=== PATIENT | male | born 1960 | race Caucasian/White ===

== ENCOUNTER 2020-06-09 00:43 | Emergency (ER) | payer BC, OTHER, SELFPAY ==
--- NOTE | 2020-06-09 00:45 | ECG_ITS ---
Measurements Intervals [place] Rate: 67 P: 36 KS: 186 QRS: -4 QRSD: 102 T: 28 QT: 371 QTc: 393 Interpretive Statements SINUS RHYTHM BORDERLINE ST-T WAVE ABNORMALITY- HIGH LATERAL LEADS BASELINE ARTIFACT- I, II, III, AVR, AVL, AVF, V1, V6 BORDERLINE ECG Electronically Signed On 06-09-2020 7:04:56 CDT by He Jasso D.O.
[2020-06-09 00:52] VITALS: BP 152/108; PULSE 71; RESP 16; TEMP 36.7; O2SAT 100
[2020-06-09] MEDS: ASPIRIN 81 MG CHEWABLE TABLET 324 MG PO (01:05)
[2020-06-09 01:06] LABS: Basophils Absolute Auto 0.1 K/mm3 (0.0-0.1); Basophils Percent Auto 0.8 % (0.2-1.2); Eosinophils Absolute Auto 0.3 K/mm3 (0-0.3); Eosinophils Percent Auto 3.2 % (0-4.4); Hematocrit 52.8 % (42.0-52.0); Hemoglobin 17.7 g/dL (14.0-18.0); Immature Granulocyte Absolute 0.04 K/mm3 (0.00-0.031); Immature Granulocyte Percent A 0.5 % (0-0.5); Lymphocytes Absolute Auto 2.18 K/mm3 (0.9-3.2); Mean Corpuscular HGB Conc 33.5 g/dl (32-36); Mean Corpuscular Hemoglobin 31.1 pg (26-34); Mean Corpuscular Volume 92.6 fl (80-100); Mean Platelet Volume 10.8 fl (7.4-10.4); Neutrophils Absolute Auto 4.3 K/mm3 (1.3-6.7); Neutrophils Percent Auto 54.5 % (45.5-73.1); Platelet Count Result 204 k/mm3 (150-375); Red Cell Distribution Width 12.7 % (11.5-14.5); White Blood Count 7.8 K/mm3 (4.5-10.0)
[2020-06-09] MEDS: NITROGLYCERIN SL 0.4 MG TABLET SUBLINGUAL (01:06)
[2020-06-09 01:15] LABS: INR 1.1; Prothrombin Time 14.5 Seconds (11.1-14.7)
[2020-06-09 01:15] LABS: Alanine Aminotransferase 27 U/L (4-50); Albumin Level 4.7 g/dL (3.5-5.1); Alkaline Phosphatase 57 U/L (38-126); Anion Gap 7 mmol/L (8-16); Aspartate Amino Transferase 27 U/L (17-59); Bilirubin,Total 0.4 mg/dL (0.2-1.3); Blood Urea Nitrogen 20 mg/dL (9-20); Calcium 9.5 mg/dL (8.4-10.2); Carbon Dioxide 30 mmol/L (22-30); Chloride 103 mmol/L (98-107); Estimated CRCL calculation 76 ml/min; Estimated Glomerular Filt Rate > 60; Glucose 149 mg/dL (75-110); Lipase 208 U/L (23-300); Potassium 3.9 mmol/L (3.4-5.0); Sodium 140 mmol/L (137-145)
[2020-06-09 01:16] LABS: Partial Thromboplastin Time 29.4 SECONDS (22.3-36.8)
[2020-06-09 01:26] LABS: Troponin I < 0.012 ng/mL (0.000-0.034)
[2020-06-09 01:34] VITALS: BP 133/84; PULSE 68; RESP 16; O2SAT 96
--- NOTE | 2020-06-09 02:01 | ED.GENADULT ---
HPI - General Adult General Chief complaint: Chest Pain Stated complaint: chest pain Time Seen by Provider: 06/09/20 00:52 History of Present Illness HPI narrative: Patient 59-year-old gentleman who presents to emergency department with chief complaint of chest discomfort. The patient states tonight he was relaxing and noticed he was slight tightness over the left side of his chest. Patient denies shortness of breath denies diaphoresis reports it was not worsened or improved by anything. Patient reports he has prior history of atrial fib in the past and also has had a valve replacement. The patient reports he is on an anticoagulant the patient reports that pain is not worsened by anything nor is it improved by anything reports it is very mild in nature. Related Data Home Medications Medication Instructions Recorded Confirmed carvedilol 25 mg tablet 25 mg PO Q12H 12/23/18 02/12/19 digoxin 250 mcg (0.25 mg) tablet 250 mcg PO DAILY 12/23/18 02/12/19 rivaroxaban 20 mg tablet 20 mg PO DAILY 12/23/18 02/12/19 rosuvastatin 20 mg tablet 20 mg PO DAILY 12/23/18 02/12/19 docvuovn-hrq-wemvw acid 300 1 tablet PO DAILY 12/24/18 02/12/19 mcg-lycopene 600 mcg-lutein 300 mcg tablet blood sugar diagnostic #10 each 02/12/19 02/12/19 Allergies Allergy/AdvReac Type Severity Reaction Status Date / Time No Known Allergies Allergy Verified 06/09/20 00:44 Review of Systems Review of Systems: Narrative: A 10 system review of systems was completed on the patient and is negative except for what is stated in the HPI. Nursing and ancillary documentation was reviewed. [facility] Past Medical History Medical History Essential (primary) hypertension H/O mitral valve prolapse History of chronic atrial fibrillation History of sleep apnea Insomnia Type 2 diabetes mellitus without complication, without long-term current use of insulin Surgical History Surgical History Hx of mitral valve repair 09/14/2016 Family History Family History Father Family history of cardiovascular disease, Onset Age: 60 Other Diabetes mellitus Family history of alcoholism Family history of chronic obstructive pulmonary disease Family history of lung cancer Family history of obesity Hypertension Social History Social History Smoking status: Never smoker Second hand tobacco smoke exposure: No Alcohol intake: current Substance use: never Substance use type: does not use Additional living arrangements comments: Gender identity (if verbalized by the patient): Male Exam Narrative: Exam Narrative: GENERAL: Well-appearing, well-nourished, and in no acute distress. HEAD: Normocephalic, atraumatic. EYES: PERRLA and EOMI. ENT: Nares clear, no rhinorrhea or epistaxis. Mucous membranes moist. NECK: Supple. CHEST: Clear to auscultation. No respiratory distress. HEART: Regular rate and rhythm. No murmur heard. Normal peripheral pulses. ABDOMEN: Soft, nontender, nondistended, normal active bowel sounds. EXTREMITIES: Normal range of motion. No edema. SKIN: Warm, dry, no rash. NEURO: No focal deficits. Alert and oriented x3. PSYCH: Normal mood and affect. Course Vital Signs Vital signs: Vital Signs Temperature 36.7 C 06/09/20 00:52 Pulse Rate 71 06/09/20 00:52 Respiratory Rate 16 06/09/20 00:52 Blood Pressure 152/108 H 06/09/20 00:52 Pulse Oximetry 100 06/09/20 00:52 Temperature 36.7 C 06/09/20 00:52 Pulse Rate 70 06/09/20 03:39 Respiratory Rate 16 06/09/20 03:39 Blood Pressure 135/79 06/09/20 03:39 Pulse Oximetry 96 06/09/20 03:39 Medical Decision Making Vital Signs Vital Signs: Vital Signs Temperature 36.7 C 06/09/20 00:52 Pulse Rate
[2020-06-09 03:39] VITALS: BP 135/79; PULSE 70; RESP 16; O2SAT 96
[2020-06-09 04:37] LABS: Troponin I < 0.012 ng/mL (0.000-0.034)
[2020-06-09 04:50] VITALS: BP 133/79; PULSE 78; RESP 16; TEMP 36.7; O2SAT 100
== END 2020-06-09 04:51 | disposition home or self-care (01) ==
PROVIDERS: Emergency Provider Emergency Medicine; PCP Family Medicine
DX: R07.89 Other chest pain (principal); I10 Essential (primary) hypertension; I34.1 Nonrheumatic mitral (valve) prolapse; I48.20 Chronic atrial fibrillation, unspecified; Z79.01 Long term (current) use of anticoagulants; G47.30 Sleep apnea, unspecified
CPT/HCPCS: 36415; 80048; 80076; 83690; 84484; 85025; 85610; 85730; 93005; 99284; A9270

== ENCOUNTER 2022-05-10 08:54 | Outpatient (CLI) | payer BC, OTHER, SELFPAY ==
[2022-05-10 16:49] LABS: Basophils Absolute Auto 0.1 K/mm3 (0.0-0.1); Basophils Percent Auto 0.9 % (0.2-1.2); Eosinophils Absolute Auto 0.2 K/mm3 (0-0.3); Hematocrit 51.8 % (42.0-52.0); Hemoglobin 16.9 g/dL (14.0-18.0); Immature Granulocyte Absolute 0.05 K/mm3 (0.00-0.031); Immature Granulocyte Percent A 0.6 % (0-0.5); Lymphocytes Absolute Auto 1.46 K/mm3 (0.9-3.2); Lymphocytes Percent Auto 18.7 % (18.3-44.2); Mean Corpuscular HGB Conc 32.6 g/dl (32-36); Mean Corpuscular Hemoglobin 31.6 pg (26-34); Mean Corpuscular Volume 96.8 fl (80-100); Mean Platelet Volume 11.1 fl (7.4-10.4); Monocytes Absolute Auto 0.8 K/mm3 (0.1-0.6); Monocytes Percent Auto 9.7 % (2.6-8.5); Neutrophils Absolute Auto 5.3 K/mm3 (1.3-6.7); Neutrophils Percent Auto 68.1 % (45.5-73.1); Platelet Count Result 221 k/mm3 (150-375); Red Blood Count 5.35 M/mm3 (4.6-6.20); Red Cell Distribution Width 13.2 % (11.5-14.5); White Blood Count 7.8 K/mm3 (4.5-10.0)
[2022-05-10 17:05] LABS: Alanine Aminotransferase 19 U/L (6-50); Albumin Level 4.7 g/dL (3.5-5.1); Alkaline Phosphatase 58 U/L (38-126); Anion Gap 15 mmol/L (8-16); Aspartate Amino Transferase 58 U/L (17-59); Bilirubin,Total 0.8 mg/dL (0.2-1.3); Blood Urea Nitrogen 20 mg/dL (9-20); Calcium 9.1 mg/dL (8.4-10.2); Carbon Dioxide 20 mmol/L (22-30); Chloride 106 mmol/L (98-107); Estimated Glomerular Filt Rate > 60; Glucose 153 mg/dL (65-110); Potassium 4.5 mmol/L (3.4-5.0); Sodium 141 mmol/L (137-145)
[2022-05-10 17:33] LABS: Prostate Specific Antigen 1.5 ng/mL (< OR = 4.0)
[2022-05-10 17:53] LABS: Vitamin D 25 Hydroxy 44.4 ng/mL
[2022-05-10 17:58] LABS: Creatinine Urine 75.6 mg/dL
[2022-05-10 19:21] LABS: MALB Creatinine Ratio < 7.9 mg/g (0-30); Microalbumin Urine Random < 6.0 mg/L (0-16.7)
== END 2022-05-10 08:55 | disposition home or self-care (01) ==
LOC: ANHWCLAB 08:57
PROVIDERS: PCP Family Medicine; Visit Provider Family Medicine
DX: Z00.00 Encounter for general adult medical examination without abnormal findings (principal); Z12.5 Encounter for screening for malignant neoplasm of prostate; I11.0 Hypertensive heart disease with heart failure; I50.9 Heart failure, unspecified; I48.20 Chronic atrial fibrillation, unspecified; E11.9 Type 2 diabetes mellitus without complications; E55.9 Vitamin D deficiency, unspecified
CPT/HCPCS: 36415; 80053; 82043; 82306; 84153; 84443; 85025; G0103

== ENCOUNTER 2024-07-30 07:59 | Outpatient (CLI) | payer OTHER, SELFPAY ==
[2024-08-19 10:07] VITALS: BMI 26.8
--- NOTE | 2024-08-19 10:07 | WPDHOMESLEEP ---
Sleep Study - Home Unattended Date of Study: 07/30/24 Ordering Provider: Pritesh Trinh APRN Interpreting Provider: Noni Lieberman DO Home Sleep Study Type: Watch PAT Height: 1.82 m Weight: 88.451 kg Body Mass Index: 26.8 Neck Circumference (inches): 16 [place]: 0 Reason for Sleep Study Previously diagnosed VERN but no longer on CPAP. Evaluation for VERN based on abnormal blood test. Sleep History The patient is a 63-year-old male who had a sleep study ordered by the pulmonary group for the evaluation of sleep apnea. He denies snoring loudly. He denies interruptions in breathing while asleep. He denies choking or gasping at night. He denies having trouble breathing on his back. He denies morning headaches. He denies having a dry or sore mouth/throat in the morning. He denies nocturnal heartburn. He denies nocturia. He denies having difficulty falling or staying asleep. He does have difficulty returning to sleep if he wakes up throughout the night. He denies any hypnotic or sedative use. He denies feeling anxious about sleep. He denies feeling tired or sleepy during the day. He denies feeling tired in the morning. He denies having the urge to fall asleep during the day. He denies feeling drowsy while driving. He denies sleep paralysis, cataplexy, and hypnagogic/hypnopompic hallucinations. He denies clenching or grinding his teeth. He denies kicking or jerking his legs excessively. He denies having a restless feeling in his legs. He goes to bed at 11 p.m. every night. It takes him 15 minutes to fall asleep. He gets 7 hours of sleep every night. His sleep is a little more restorative on days off. He denies taking any planned naps. He denies dream enactment behavior. He denies sleepwalking. He consumes 1 to 2 cups of a caffeinated beverage per day. He consumes 1 alcoholic beverage 1 to 2 nights per week. He denies tobacco use. He exercises 3 to 4 nights per week. COUNT INCLUDES THE [facility] Past Medical History Medical History Anxiety (~2022) VERN (obstructive sleep apnea) H/O mitral valve prolapse Chronic atrial fibrillation Hyperlipidemia with target LDL less than 70 History of chronic atrial fibrillation Type 2 diabetes mellitus without complication, without long-term current use of insulin Essential (primary) hypertension Insomnia Chronic congestive heart failure 06/19/17 Surgical History Surgical History H/O mitral valve repair (~03/2007) Family History Family History Father Family history of cardiovascular disease, Onset Age: 60 Other Diabetes mellitus Family history of alcoholism Family history of chronic obstructive pulmonary disease Family history of lung cancer Family history of obesity Hypertension Social History Social History Smoking status: Never smoker Second hand tobacco smoke exposure: No Alcohol intake: current Alcohol use details: drinks a couple beers or a couple glasses of wine on Saturdays Substance use: never Substance use type: does not use Lack of Transportation: No Lack of Food: Never True Current Housing: I Have Housing Concerned About Future Housing: No Difficulty Paying Gas/Electric Bills: No Difficulty Paying for Meds: No Currently Unemployed: No Education: Master's Degree or Higher Difficulty w/ Childcare or Family Care: No Living arrangements: with family Additional living arrangements comments: Occupation/Education: occupation Gender identity (if verbalized by the patient): Male Sexual Orientation (if Verbalized by the Patient): Straight or Heterosexual Spiritual care concerns: No Medications Home Medications ?Medication ?Instructions ?Recorded ?Confirmed ?Type digoxin 250 mcg (0.25 mg) tablet 250 mcg PO DAILY 12/23/18 05/05/24 History rivaroxaban 20 mg tablet (Xarelto) 20 mg PO DAILY 12/23/18 05/05/24 History kchngees-sx-lvvga 300 mcg-K 60 1 tablet PO DAILY 12/24/18 05/05/24 History mcg-lycop 600 mcg-lutein 300 mcg tablet (Centrum Silver Men) blood sugar diagnostic #10 ea 02/12/19 05/05/24 History carvedilol 25 mg tablet 25 mg PO Q12H #180 tabs 02/20/23 05/05/24 Rx fenofibrate 160 mg tablet 160 mg PO DAILY #90 tabs 11/20/23 05/05/24 Rx icosapent ethyl 1 gram capsule 2 g (2 x 1 gram) PO BID #360 caps 11/20/23 05/05/24 Rx semaglutide 2 mg/dose (8 mg/3 mL) 2 mg (0.75 mL) subcut WEEKLY #9 mL 03/27/24 05/05/24 Rx subcutaneous pen injector blood-glucose sensor (FreeStyle #6 ea 04/25/24 05/05/24 Rx Judit 3 Sensor device) empagliflozin 25 mg tablet 25 mg PO QAM #90 tabs 05/05/24 05/05/24 Rx (Jardiance) insulin glargine 100 unit/mL (3 24 unit (0.24 mL) subcut DAILY 3 05/05/24 05/05/24 Rx mL) subcutaneous pen (Lantus months #24 mL Solostar U-100 Insulin) losartan 25 mg tablet 25 mg PO DAILY #90 tabs 05/05/24 05/05/24 Rx rosuvastatin 20 mg tablet 20 mg PO QHS #90 tabs 05/05/24 05/05/24 Rx metformin 1,000 mg tablet 1,000 mg PO BID 90 days #180 tabs 07/09/24 Rx pen needle, diabetic 32 gauge x #100 ea 08/05/24 Rx Sleep Procedure The sleep study was completed using [employer] a technically adequate device with seven channels: peripheral arterial tone, actigraphy, body position, snore, respiratory movement, pulse oximetry, sleep staging, and heart rate. Prior to using the device, the patient received verbal and written instructions for its application and was provided with the help desk phone number for additional telephonic instruction with 24-hour availability of qualified personnel to answer questions. The study was scored using CMS guidelines. Sleep Architecture The total recording time is 6 hrs, 12 min. The total sleep time is 5 hrs, 5 min. Sleep latency is 5 minutes. REM latency is 147 minutes. The patient had 8 episodes of waking. Sleep architecture shows 5.7% deep sleep, 77.1% light sleep, and (as % Total Sleep Time) showed NREM (Light 77.1%; Deep 5.7%), and a 17.2% stage REM. The patient spent 1.0% of total sleep time in the supine position. Sleep efficiency was 81.99. Respiratory Analysis The overall AHI (pAHI 4%:) is 4.5. The overall AHI (pAHI 3%:) is 11.9. The central AHI is 0.0. The AHI was 7.5 in NREM and 32.0 in REM sleep. The AHI was N/A in Supine and 12.0 in Non-supine sleep. Percent of Solomon Flood respirations is 0.0. Oximetry Data The oxygen desaturation index (KALI 4%:) is 3.9. The mean saturation is 92%, and the lowest saturation is 86%. Time spent with saturation < 88% is 0.8 minutes. Snoring Profile Snoring average intensity is 40 dB. The patient snored above 45 decibels for 2.5 minutes, 0.8% of sleep time. Cardiac Profile The average pulse rate is 65 beats per minutes. The lowest pulse rate is 45 bpm. The highest pulse rate reported is 102 bpm. Atrial fibrillation was not detected. Premature beats occur 5.5 per minute. Assessment and Plan Assessment and Plan (1) Sleep disturbances: Code(s): G47.9 - Sleep disorder, unspecified Status: Acute Assessment and Plan: Per AASM guidelines (pAHI 3%), the patient had an overall AHI of 11.9 with desaturation down to 86%. This is consistent with mild sleep apnea. Due to the patient's diabetes, he qualifies for treatment. I recommend that the patient be prescribed Resmed AirSense 11 AutoPAP 5-15 cm H2O, CPAP mask/filters/tubing and heated humidity. A mandibular advancement device is also an acceptable treatment option. This should be used with all episodes of sleep.? Compliance should be reviewed within 31-90 days of starting therapy for usage greater than 4 hours per night greater than 70% of the nights. The patient should be asked about symptoms such as?excessive daytime sleepiness, quality of sleep, decreased nocturia, increased?mental functioning such as memory, mood, and concentration. Per CMS guidelines (pAHI 4%), The patient had an overall AHI of 4.5 with desaturation down to 86%. This is not consistent with sleep disordered breathing. If the patient's insurance only recognizes CMS guidelines, he does not qualify for treatment. I would recommend a split study due to the patient's AHI being borderline. Data The data obtained during this sleep study is adequate for interpretation. Certification This sleep study has been reviewed by a board certified sleep medicine physician.
== END 2024-07-31 11:31 | disposition home or self-care (01) ==
LOC: ANHCSM 07:59
PROVIDERS: PCP Family Medicine; Visit Provider Nurse Practitioner Family
DX: G47.9 Sleep disorder, unspecified (principal); Z86.69 Personal history of other diseases of the nervous system and sense organs
CPT/HCPCS: 95800

== ENCOUNTER 2024-08-26 09:33 | Outpatient (CLI) | payer OTHER, SELFPAY ==
--- OUTSIDE RECORDS SUMMARY | 2024-08-26 09:37 | XMS_ITS | Continuity of Care Document ---
Author Name [facility] Organization [facility] Care Team Providers Care Roll Up Helper Name Role Phone [facility] Unavailable Unavailable Medications Combined list of outpatient medications from Department of Defense and Veterans Affairs facilities.Medications provided include 1) outpatient medications from the last 15 months, and 2) patient-reported medications. Medication Details Route Status Patient Instructions Prescription Expires Prescription Number Last Dispense Date Ordering Provider Order Date Order Qty Source BD Aminata 2nd Gen pen needle 32g 4mm [100EA] See Instruct ions, # 100 EA, 1 total refill(s ), Hard Stop Ordered 08/27/2024 4 2023 100.0 Ambulat ory Pharmac y carvedilol (U/D) 25 MG ORAL TAB May cause drowsine ss.Be careful if taking OTCs.Malachi e with food/mil k.Take or use exactly as directed . 06/11/2024 [id number] 4 2023 180 [facility] [place] [place] carvedilol 25 mg tablet 25 mg, Oral, BID, # 180 EA, 2 total refill(s ), Hard Stop Oral (given by mouth) Complet ed 05/29/2023 4 2023 180.0 Ambulat ory Pharmac y carvedilol 25 mg tablet = 1 tab(s), Oral, BID, # 180 EA, 3 total refill(s ), Soft Stop Oral (given by mouth) Ordered 5 2024 180.0 Ambulat ory Pharmac y carvedilol 25 mg tablet 25 mg, Oral, BID, # 180 EA, 3 total refill(s ), Hard Stop Oral (given by mouth) Complet ed 06/11/2024 5 2024 180.0 Ambulat ory Pharmac y dapaglifloz in 10 mg tablet 10 mg, Oral, Daily, # 90 EA, 3 total refill(s ), Hard Stop, JOLIE Oral (given by mouth) Discont inued 05/29/2024 4 2024 90.0 Ambulat ory Pharmac y digoxin (U/D) 250 MCG ORAL TAB Take or use exactly as directed . 06/11/2024 [id number] 4 2023 90 [facility] [place] [place] digoxin 250 mcg (0.25 mg) tablet 250 mcg, Oral, Daily, # 90 EA, 2 total refill(s ), Hard Stop Oral (given by mouth) Complet ed 05/29/2023 4 2023 90.0 Ambulat ory Pharmac y digoxin 250 mcg (0.25 mg) tablet = 1 tab(s), Oral, Daily, # 90 EA, 3 total refill(s ), Soft Stop Oral (given by mouth) Ordered 5 2024 90.0 Ambulat ory Pharmac y digoxin 250 mcg (0.25 mg) tablet 250 mcg, Oral, Daily, # 90 EA, 3 total refill(s ), Hard Stop Oral (given by mouth) Complet ed 06/11/2024 5 2024 90.0 Ambulat ory Pharmac y empaglifloz in 25 mg tablet = 1 tab(s), Oral, every morning, # 90 EA, 1 total refill(s ), Hard Stop Oral (given by mouth) Discont inued 05/29/2024 5 2024 90.0 Ambulat ory Pharmac y empaglifloz in 25 mg tablet = 1 tab(s), Oral, # 90 EA, 1 total refill(s ), Soft Stop Oral (given by mouth) Ordered 5 2024 90.0 Ambulat ory Pharmac y Farxiga 10 mg tablet 10 mg, Oral, Daily, # 90 EA, 0 total refill(s ), Hard Stop Oral (given by mouth) Complet ed 05/29/2023 3 2023 90.0 Ambulat ory Pharmac y fenofibrate 160 mg tablet 160 mg, Oral, Daily, # 90 EA, 3 total refill(s ), Hard Stop Oral (given by mouth) Complet ed 10/25/2023 4 2023 90.0 Ambulat ory Pharmac y fenofibrate 160 mg tablet = 1 tab(s), Oral, Daily, # 90 EA, 3 total refill(s ), Hard Stop Oral (given by mouth) Ordered 11/19/2024 5 2024 90.0 Ambulat ory Pharmac y FreeStyle Judit 2 Sensor See Instruct ions, # 6 EA, 5 total refill(s ), Hard Stop Discont inued 02/20/2023 3 2023 6.0 Ambulat ory Pharmac y glucose sensor freestyle judit 2 See Instruct ions, # 6 EA, 2 total refill(s ), Hard Stop Discont inued 09/05/2023 4 2023 6.0 Ambulat ory Pharmac y glucose sensor freestyle judit 3 See Instruct ions, Use as directed by prescrib er, # 6 EA, 2 total refill(s ), Soft Stop Ordered 5 2024 6.0 Ambulat ory Pharmac y glucose sensor freestyle judit 3 See Instruct ions, # 6 EA, 2 total refill(s ), Hard Stop Ordered 08/27/2024 5 2024 6.0 Ambulat ory Pharmac y icosapent ethyl 1 g capsule 2 g, Oral, BID, # 360 EA, 3 total refill(s ), Hard Stop Oral (given by mouth) Complet ed 10/25/2023 4 2023 360.0 Ambulat ory Pharmac y icosapent ethyl 1 g capsule = 2 cap(s), Oral, BID, # 360 EA, 3 total refill(s ), Hard Stop Oral (given by mouth) Ordered 11/19/2024 5 2024 360.0 Ambulat ory Pharmac y insulin glargine (Lantus SoloStar) 100 units/mL [3mL] = 0.24 mL, SubCutan eous, # 30 mL, 2 total refill(s ), Soft Stop SubCut aneous (under the skin) Ordered 5 2024 30.0 Ambulat ory Pharmac y insulin glargine (Lantus SoloStar) 100 units/mL [3mL] = 0.3 mL, SubCutan eous, Daily, # 15 mL, 3 total refill(s ), Hard Stop SubCut aneous (under the skin) Discont inued 05/29/2024 5 2024 15.0 Ambulat ory Pharmac y Jardiance 25 mg tablet 25 mg, Oral, every morning, # 90 EA, 1 total refill(s ), Hard Stop Oral (given by mouth) Discont inued 08/30/2023 4 2023 90.0 Ambulat ory Pharmac y Jardiance 25 mg tablet 25 mg, Oral, every morning, # 90 EA, 1 total refill(s ), Hard Stop Oral (given by mouth) Discont inued 02/08/2024 4 2024 90.0 Ambulat ory Pharmac y Lantus SoloStar glargine 100 units/mL [3mL] See Instruct ions, # 15 mL, 1 total refill(s ), Hard Stop Discont inued 12/18/2023 4 2023 15.0 Ambulat ory Pharmac y losartan (U/D) 25 MG ORAL TAB Be careful if taking OTCs.Malachi e or use exactly as directed .Do not take if . 06/11/2024 [id number] 4 2023 90 [facility] [place] [place] losartan 25 mg tablet = 1 tab(s), Oral, Daily, # 90 EA, 3 total refill(s ), Soft Stop Oral (given by mouth) Ordered 5 2024 90.0 Ambulat ory Pharmac y losartan 25 mg tablet 25 mg, Oral, Daily, # 90 EA, 3 total refill(s ), Hard Stop Oral (given by mouth) Discont inued 05/29/2024 5 2024 90.0 Ambulat ory Pharmac y losartan 25 mg tablet = 1 tab(s), Oral, Daily, # 90 EA, 1 total refill(s ), Soft Stop Oral (given by mouth) Ordered 5 2024 90.0 Ambulat ory Pharmac y metFORMIN 1000 mg tablet 1000 mg, Oral, BID, # 180 EA, 0 total refill(s ), Hard Stop Oral (given by mouth) Discont inued 08/28/2023 4 2023 180.0 Ambulat ory Pharmac y metFORMIN 1000 mg tablet = 1 tab(s), Oral, BID, # 180 EA, 1 total refill(s ), Hard Stop Oral (given by mouth) Discont inued 07/10/2024 5 2024 180.0 Ambulat ory Pharmac y metFORMIN 1000 mg tablet = 1 tab(s), Oral, BID, # 180 EA, 1 total refill(s ), Soft Stop Oral (given by mouth) Ordered 5 2024 180.0 Ambulat ory Pharmac y metFORMIN 1000 mg tablet 1000 mg, Oral, BID, # 180 EA, 1 total refill(s ), Hard Stop Oral (given by mouth) Discont inued 02/08/2024 4 2024 180.0 Ambulat ory Pharmac y Metformin Hydrochlori de Tablet Extended Release 1,000 mg Oral Do not drink alcohol. Take with food/mil k.Take or use exactly as directed .Obtain advice for OTCs.Yue ck with your doctor before becoming . 06/19/2024 [id number] 4 2023 180 [facility] [place] [place] needle pen 32g 4mm See Instruct ions, # 100 EA, 3 total refill(s ), Soft Stop Ordered 5 2024 100.0 Ambulat ory Pharmac y Ozempic (2mg dose) 8 mg/3 mL inj-pen [1pen/3mL] See Instruct ions, # 3 mL, 5 total refill(s ), Hard Stop Notes: refriger ate Discont inued 03/27/2024 5 2024 3.0 Ambulat ory Pharmac y Ozempic 2 mg/3 mL inj-pen [1pen/3mL] See Instruct ions, # 3 mL, 1 total refill(s ), Hard Stop Notes: refriger ate Discont inued 10/11/2023 4 2023 3.0 Ambulat ory Pharmac y Ozempic 4 mg/3 mL inj-pen [1pen/3mL] See Instruct ions, # 3 mL, 5 total refill(s ), Hard Stop Notes: refriger ate Discont inued 10/11/20232023 3.0 Ambulat ory Pharmac y pen needle 32g 4mm See Instruct ions, # 100 EA, 1 total refill(s ), Hard Stop Ordered 02/06/2025 5 2024 100.0 Ambulat ory Pharmac y RIVAROXABAN 20 MG ORAL TAB Take or use exactly as directed .Obtain advice for OTCs.Yue ck with your doctor before becoming .Take with food. 06/11/2024 [id number] 4 2023 90 [facility] [place] [place] rivaroxaban 20 mg tablet = 1 tab(s), Oral, Daily, # 90 EA, 3 total refill(s ), Soft Stop Oral (given by mouth) Ordered 5 2024 90.0 Ambulat ory Pharmac y rosuvastati n 20 mg tablet 20 mg, Oral, Daily, # 90 EA, 2 total refill(s ), Hard Stop Oral (given by mouth) Complet ed 05/29/2023 4 2023 90.0 Ambulat ory Pharmac y rosuvastati n 20 mg tablet = 1 tab(s), Oral, Daily, # 90 EA, 3 total refill(s ), Soft Stop Oral (given by mouth) Ordered 5 2024 90.0 Ambulat ory Pharmac y rosuvastati n 20 mg tablet 20 mg, Oral, Daily, # 90 EA, 3 total refill(s ), Hard Stop Oral (given by mouth) Discont inued 05/29/2024 5 2024 90.0 Ambulat ory Pharmac y rosuvastati n 20 mg tablet = 1 tab(s), Oral, # 90 EA, 1 total refill(s ), Soft Stop Oral (given by mouth) Ordered 5 2024 90.0 Ambulat ory Pharmac y semaglutide (2mg dose) 8mg/3mL inj-pen [3 mL] See Instruct ions, # 3 mL, 5 total refill(s ), Hard Stop Notes: refriger ate Ordered 03/27/2025 5 2024 3.0 Ambulat ory Pharmac y Trulicity Pen 3 mg/0.5 mL [4EA=2mL] See Instruct ions, # 6 mL, 0 total refill(s ), Hard Stop Complet ed 08/18/2023 3 2023 6.0 Ambulat ory Pharmac y Vascepa 1 g capsule 2 g, Oral, BID, # 360 EA, 0 total refill(s ), Hard Stop Oral (given by mouth) Complet ed 01/24/2023 3 2022 360.0 Ambulat ory Pharmac y Xarelto 20 mg tablet 20 mg, Oral, Daily, # 90 EA, 3 total refill(s ), Hard Stop Oral (given by mouth) Complet ed 06/11/2024 5 2024 90.0 Ambulat ory Pharmac y Xarelto 20 mg tablet 20 mg, Oral, Daily, # 60 EA, 0 total refill(s ), Hard Stop Oral (given by mouth) Complet ed 11/29/2022 3 2022 60.0 Ambulat ory Pharmac y Allergies, Adverse Reactions, Alerts Combined list of allergies from Department of Defense and Veterans Affairs facilities. It does not include entries that were removed or entered in error. Substance Category Reaction Severity Reaction type Status Date Reported Comments Source No Known Allergies Drug allergy (disorder) active 03/02/2007 [facility] [place] [place] Immunizations Combined list of available immunizations from the Department of Defense and Veterans Affairs facilities. Immunization Series Date Given Administered By Site Reaction Lot Number CVX Code Drug Executive Personal Assistant Status Comments Source Tdap 2023 () Not Given Tdap DoD Tdap 2023 () Not Given Tdap DoD influenza virus vaccine, whole virus [facility] [id number] 16 sanofi pasteur complet ed influenza virus vaccine, whole virus 11/26/02 Given Ambulat ory Pharmac y influenza virus vaccine, whole virus 1 2002 Unknown, Provider [id number] 16 Sanofi Pasteur ([facility]) complet ed influenza virus vaccine, whole virus DoD influenza virus vaccine, whole virus 2000 [facility] Arm [id number] 16 sanofi pasteur complet ed influenza virus vaccine, whole virus 12/06/00 Given Ambulat ory Pharmac y tetanus-dipht h toxoids (Td) adult/adol 2000 [facility] Arm [id number] sanofi pasteur complet ed tetanus-d iphth toxoids (Td) adult/ado l 12/06/00 Given Ambulat ory Pharmac y tetanus and diphtheria toxoids, adsorbed, preservative free, for adult use (2 Lf of tetanus toxoid and 2 Lf of diphtheria toxoid) 1 2000 Unknown, Provider [id number] 09 Sanofi Pasteur ([facility]) complet ed tetanus and diphtheri a toxoids, adsorbed, preservat yancy free, for adult use (2 Lf of tetanus toxoid and 2 Lf of diphtheri a toxoid) DoD influenza virus vaccine, whole virus 1 2000 Unknown, Provider [id number] 16 Sanofi Pasteur ([facility]) complet ed influenza virus vaccine, whole virus DoD [facility], [facility] complet ed influenza virus vaccine, whole virus 02/09/00 Given Ambulat ory Pharmac y influenza virus vaccine, whole virus 1 2000 Unknown, Provider 16 () complet ed influenza virus vaccine, whole virus DoD influenza virus vaccine, whole virus [id number] [place] [address] complet ed influenza virus vaccine, whole virus 12/07/98 Given Ambulat ory Pharmac y influenza virus vaccine, whole virus 1 1998 Unknown, Provider [id number] 16 [facility] complet ed influenza virus vaccine, whole virus DoD influenza virus vaccine, whole virus 1997 [id number] [employer] complet ed influenza virus vaccine, whole virus 03/06/97 Given Ambulat ory Pharmac y hepatitis A adult vaccine 1997 [id number] [employer] complet ed hepatitis A adult vaccine 03/06/97 Given Ambulat ory Pharmac y influenza virus vaccine, whole virus 1 1997 Unknown, Provider [id number] [email or web address] (CON) complet ed influenza virus vaccine, whole virus DoD hepatitis A vaccine, adult dosage 2 1997 Unknown, Provider [id number] Merck (MSD) complet ed hepatitis A vaccine, adult dosage DoD hepatitis A adult vaccine 1995 52 complet ed hepatitis A adult vaccine 12/25/95 Given Ambulat ory Pharmac y hepatitis A vaccine, adult dosage 1 1995 Unknown, Provider 52 () complet ed hepatitis A vaccine, adult dosage DoD tetanus-dipht h toxoids (Td) adult/adol 1990 09 complet ed tetanus-d iphth toxoids (Td) adult/ado l 06/26/90 Given Ambulat ory Pharmac y tetanus and diphtheria toxoids, adsorbed, preservative free, for adult use (2 Lf of tetanus toxoid and 2 Lf of diphtheria toxoid) 2 1990 Unknown, Provider 09 () complet ed tetanus and diphtheri a toxoids, adsorbed, preservat yancy free, for adult use (2 Lf of tetanus toxoid and 2 Lf of diphtheri a toxoid) [facility] typhoid, parenteral, AKD 1989 53 complet ed typhoid, parentera l, AKD 11/05/89 Given Ambulat ory Pharmac y typhoid vaccine, parenteral, acetone-kille d, dried ([place] ) 1 1989 Unknown, Provider 53 () complet ed typhoid vaccine, parentera l, acetone-k illed, dried ([place] ) DoD tetanus-dipht h toxoids (Td) adult/adol 1980 09 complet ed tetanus-d iphth toxoids (Td) adult/ado l 11/05/80 Given Ambulat ory Pharmac y tetanus and diphtheria toxoids, adsorbed, preservative free, for adult use (2 Lf of tetanus toxoid and 2 Lf of diphtheria toxoid) 1 1980 Unknown, Provider 09 () complet ed tetanus and diphtheri a toxoids, adsorbed, preservat yancy free, for adult use (2 Lf of tetanus toxoid and 2 Lf of diphtheri a toxoid) DoD poliovirus vaccine, live, oral 1980 02 complet ed polioviru s vaccine, live, oral 07/06/80 Given Ambulat ory Pharmac y trivalent poliovirus vaccine, live, oral 1 1980 Unknown, Provider 02 () complet ed trivalent polioviru s vaccine, live, oral DoD yellow fever vaccine 1980 37 complet ed yellow fever vaccine 04/05/80 Given Ambulat ory Pharmac y yellow fever vaccine 1 1980 Unknown, Provider 37 () complet ed yellow fever vaccine DoD vaccinia (smallpox) vaccine 1979 75 complet ed vaccinia (smallpox ) vaccine 11/06/79 Given Ambulat ory Pharmac y vaccinia (smallpox) vaccine 1 1979 Unknown, Provider 75 () complet ed vaccinia (smallpox ) vaccine DoD measles/mumps /rubella virus vaccine 1979 03 complet ed measles/m umps/rube lla virus vaccine 08/10/79 Given Ambulat ory Pharmac y measles, mumps and rubella virus vaccine 1 1979 Unknown, Provider 03 () complet ed measles, mumps and rubella virus vaccine DoD Procedures Combined list of: 1) Procedures from Department of Veterans Affairs facilities going back up to thelast 18 months, not all [place] non-surgical procedures are included; 2) All procedures from the Department of Defense facilities. Procedure Procedure Type Code Date Perfomer Comments Paula e PULMONARY SCAN 02/11/2000 [facility] CARDIOVASCULAR STRESS TEST USING TREADMILL 02/11/2000 [facility] No data available for this section Ambulatory Pharmacy Social History Combined list of available smoking, tobacco, and other social history from Department of Defense and Veterans Affairs facilities. Social History Type Response Date Comment Sourc e This section is an empty soc ial history section. [facility] Sexual Orientation Ambula tory Pharmacy Gender identity Ambulator y Pharmacy Sex Representation Male (finding) Un known Organization Assessment and Plan Combined list of future care activities from Department of Defense and Veterans Affairs facilities (e.g., assessment and plan notes, appointments, orders, and referrals). Additional future care activities may be listed in the Plan of Care section. Result Assessment and Plan Date Source Assessment and Plan No data available for this section 08/26/2024 Ambulatory Pharmacy Functional Status Combined list of recent functional and cognitive assessments recorded at Department of Defense and Veterans Affairs ([facility] Functional [place] Measurement (FIM) Scale: 1 = Total Assistance (Subject = 0% +), 2 = Maximal Assistance (Subject = 25% +), 3 = Moderate Assistance (Subject = 50% +), 4 = Minimal Assistance (Subject = 75% +), 5 = Supervision, 6 = Modified [place] (Device), 7 = Complete [place] (Timely, Safely). Assessment Date/Time Source Assessment Type Assessment Skill Assessment Score Assessment Details No data available for this section
--- OUTSIDE RECORDS SUMMARY | 2024-08-26 09:37 | XMS_ITS | Referral Summary ---
Author Organization [facility] Building D Address [address] [place] [id number] Care Team Providers Care Gis Developer Name Role Phone Shoaib Fortune MD Primary Care Provider Encounters Date Type Department Care Team Description 06/10/2024 11:15 AM CDT Office Visit [facility] Medical [facility] Cardiology [address] [place] [address] Hugo Lan MD Chronic systolic heart failure (HCC) (Primary Dx); Paroxysmal A-fib (HCC); Non-rheumatic mitral regurgitation; Primary hypertension 06/10/2024 9:47 AM CDT - 06/10/2024 11:59 PM CDT Hospital Encounter [facility] OP Cardiac Testing [address] [facility] [address] [place] [address] Non-rheumatic mitral regurgitation Discharge Disposition: Discharge to home or self care from Last 3 Months Allergies No known active allergies Medications fenofibrate (TRIGLIDE) 160 mg tablet Take 1 tablet (160 mg total) by mouth daily Active metFORMIN (GLUCOPHAGE) 1,000 mg tablet Take 1 tablet (1,000 mg total) by mouth 2 (two) times a day with meals Active icosapent ethyL (VASCEPA) 1 gram capsule Take 1 capsule (1 g total) by mouth 2 (two) times a day Active FreeStyle Judit 14 Day Sensor kit 06/03/2020 Active Trulicity 3 mg/0.5 mL pen injector 06/28/2020 Active carvediloL (COREG) 25 mg tablet Take 1 tablet (25 mg total) by mouth 2 (two) times a day 180 tablet 3 04/25/2024 Active rosuvastatin (CRESTOR) 20 mg tablet Take 1 tablet (20 mg total) by mouth daily 90 tablet 3 04/25/2024 Active losartan (COZAAR) 25 mg tablet Take 1 tablet (25 mg total) by mouth daily 90 tablet 3 04/25/2024 Active rivaroxaban (Xarelto) 20 mg tablet Take 1 tablet (20 mg total) by mouth daily 90 tablet 3 04/25/2024 Active Ozempic 2 mg/dose (8 mg/3 mL) pen injector injection 05/21/2024 Active LANTUS 100 unit/mL (3 mL) pen for injection 05/21/2024 Active Jardiance 25 mg tablet Take 1 tablet (25 mg total) by mouth daily 11/06/2022 Active Active Problems Problem Noted Date Diagnosed Date Primary hypertension 06/12/2023 Assessment & Plan (06/09/2024 9:47 PM CDT): controlled - continue carvedilol and losartan 25 Assessment & Plan (06/12/2023 1:31 PM CDT): Uncontrolled - start losartan 25, check BMP in 2 weeks - continue carvedilol - patient will update with home blood pressures after 2-3 weeks on losartan Chronic systolic heart failure 06/14/2022 Assessment & Plan (06/09/2024 9:48 PM CDT): Recovered ejection fraction, euvolemic on exam - continue Farxiga 10, carvedilol 25, losartan Assessment & Plan (06/12/2023 1:17 PM CDT): Recovered ejection fraction, euvolemic on exam - continue Farxiga 10, carvedilol 25 Assessment & Plan (06/14/2022 2:42 PM CDT): Recovered ejection fraction, euvolemic on exam - continue Farxiga 10, carvedilol 25 Right ventricular dilation 05/17/2021 Assessment & Plan (06/14/2022 2:42 PM CDT): Compared with last year the echo today is benign showing essentially normal RV size and function Assessment & Plan (05/17/2021 10:38 AM CDT): Echo last year interestingly showed some RV dilation and mild dysfunction the RVSP was normal. He does have sleep apnea that was untreated at the time. He has no evidence of significant or symptomatic pulmonary hypertension or fluid overload on exam today. Will repeat echo next year both her surveillance of mitral valve repair but also to reassess RV size and function. Obstructive sleep apnea syndrome 04/02/2020 Assessment & Plan (05/17/2021 10:37 AM CDT): Treated appropriately with CPAP Assessment & Plan (04/02/2020 10:51 AM MIXED CROP AND LIVESTOCK FARMER): It sounds as if he is doing quite well without CPAP, and perhaps weight loss cured his sleep apnea. However, given his echo finding of right ventricular enlargement and hypokinesis, I had recommended consultation with a sleep specialist and likely a sleep study to confirm that he is doing well without treatment. Mixed hyperlipidemia 09/02/2018 Assessment & Plan (04/02/2020 10:51 AM MIXED CROP AND LIVESTOCK FARMER): On chronic lipid lowering therapy with good control. No changes made. Assessment & Plan (09/02/2018 9:53 AM CDT): LDL is excellent. Triglycerides are elevated but this was nonfasting. Continue Crestor and fenofibrate. Non-rheumatic mitral regurgitation 09/04/2016 Assessment & Plan (06/10/2024 11:25 AM CDT): Status post mitral repair with good valve function and no stenosis - plan for follow-up echo in 2 years Assessment & Plan (06/12/2023 1:17 PM CDT): Status post mitral repair with last echo showing good valve function and no stenosis - plan for follow-up echo next year at fu visit Assessment & Plan (06/14/2022 2:42 PM CDT): Status post mitral repair with echo today showing good valve function and no stenosis - plan for follow-up echo in 2 years Assessment & Plan (05/17/2021 10:37 AM CDT): Status post mitral valve repair without significant regurgitation on echo last year. - continue routine surveillance Assessment & Plan (04/02/2020 10:50 AM MIXED CROP AND LIVESTOCK FARMER): Status post mitral valve repair with no mitral insufficiency on today's echo. Assessment & Plan (09/02/2018 9:52 AM CDT): Status post mitral valve repair. No symptoms and no murmur on exam. Will obtain an echo Doppler with his next visit in one year. Assessment & Plan (09/03/2017 10:15 AM CDT): No mitral insufficiency status post annuloplasty. Assessment & Plan (09/04/2016 11:01 AM CDT): No mitral insufficiency heard on exam, 8.5 years following mitral valve repair. He has not had an echo in 3.5 years. Will obtain an echo. Paroxysmal A-fib 12/26/2013 Overview (05/12/2016): Atrial fibrillation Assessment & Plan (06/10/2024 11:24 AM CDT): Minimal infrequent asymptomatic episodes remains in sinus today - continue carvedilol and Xarelto - stop digoxin Assessment & Plan (06/12/2023 1:17 PM CDT): Minimal infrequent asymptomatic episodes remains in sinus today - continue digoxin carvedilol and Xarelto Assessment & Plan (06/14/2022 2:42 PM CDT): Minimal infrequent asymptomatic episodes in sinus today - continue digoxin carvedilol and Xarelto Assessment & Plan (05/17/2021 10:37 AM CDT): No recent symptomatic recurrence. In sinus today on exam. Continue Xarelto, carvedilol 25 b.i.d. and digoxin 250. We consider in the future potentially deescalating digoxin if he continues to remain in sinus Assessment & Plan (04/02/2020 10:51 AM MIXED CROP AND LIVESTOCK FARMER): No symptomatic recurrence. He is in sinus rhythm by exam today. Continue Xarelto. Assessment & Plan (09/02/2018 9:52 AM CDT): No symptoms to suggest recurrence. He is chronically anticoagulated and is on digoxin and beta-tee therapy. Assessment & Plan (09/03/2017 10:16 AM CDT): No symptomatic recurrence. He is anticoagulated. Assessment & Plan (09/04/2016 11:00 AM CDT): He is in sinus rhythm by exam and had there have been no recognized episodes of atrial fibrillation over the last 12 months. He remains on carvedilol, Lanoxin, and Xarelto. Social History Tobacco Use Types Packs/Day Years Used Date Smoking Tobacco: Never Smokeless Tobacco: Never Tobacco Cessation:Counseling Given: Not Answered Alcohol Use Standard Drinks/Week Comments Yes 0 (1 standard drink = 0.6 oz pur e alcohol) AUDIT-C Answer Date Recorded Q1: How often do you have a drink containing alcohol? 4 or more times a week 04/29/2020 Q2: How many drinks containi ng alcohol do you have on a typical day when you are drinking? 1 or 2 Frequency of Binge Drinking Not on file 04/06 [facility] - Occupational Stress Questionnaire Answer Date Recorded Do you feel stress - tense, restless, nervous, or anxious, or unable to sleep at night because your mind is troubled all the time - these days? To some extent 04/29/2020 Exercise Vital Sign Answer Date Recorde d On average, how many days pe r week do you engage in moderate to strenuous exercise (like a brisk walk)? 7 days 04/29/2020 On average, how many minutes do you engage in exercise at this level? 40 min 04/29/2020 Sex and Gender Information Value Date Recorded Sex Assigned at Not on file Legal Sex Male 8:04 AM MIXED CROP AND LIVESTOCK FARMER Gender Identity Male 03/31/2020 5:08 PM MIXED [employer] LIVESTOCK FARMER Sexual Orientation Lepe 03/31/2020 5: 08 PM MIXED CR[employer] LIVESTOCK FARMER Last Filed Vital Signs Vital Sign Reading Time Taken Comments Blood Pressure 122/68 06/10/2024 10:57 AM CDT Pulse 66 06/10/2024 10:57 AM CDT Temperature 36.5 C (97.7 F) 07/02/2020 9:13 AM CDT Respiratory Rate 18 07/02/2020 9:13 AM CDT Oxygen Saturation 97% 06/10/2024 10:57 AM CDT Inhaled Oxygen Concentration - - Weight 90.3 kg (199 lb) 06/10/2024 10:57 AM CDT Height 180.3 cm (5' 11) 06/10/2024 10:57 AM CDT Body Mass Index 27.75 06/10/2024 10:57 AM CDT Plan of Treatment Not on file Procedures Procedure Name Priority Date/Time Associated Diagnosis Comments TRANSTHORACIC ECHO (TTE) COMPLETE W DOPPLER/CF WO CONTRAST Routine 06/10/2024 10:28 AM CDT Non-rheumatic mitral regurgitation from Last 3 Months Results * TRANSTHORACIC ECHO (TTE) COMPLETE W DOPPLER/CF WO CONTRAST (06/10/2024 10:28 AM CDT) EF Mod BP 57 % CONS SCIMAGE Anatomical Region Laterality Modality Ultrasound 06/10/2024 9:50 AM CDT Narrative 06/10/2024 11:12 AM CDT [facility]iac Testing [facility] [address] [place] [id number] ECHOCARDIOGRAM Patient Name: CASSIE AMIN : 1960 (63y 9m) Gender: M Study Date: 06/10/2024 09:50:24 AM Ht(Inch): 71 Wt(Lb): 201.94 BSA: 2.14 Supervisor Alum Plant: CATHERINE Order Provider: HUGO LAN BMI: 28.16 BP: 137/85 Ref Provider: HUGO LAN - PROCEDURES: Echocardiographic Report: Transthoracic Echocardiogram with complete 2D, M-Mode, Spectral and Color Flow Doppler examination. INDICATIONS: I34.0 Nonrheumatic mitral (valve) insufficiency. MEASUREMENTS: 2D/MM Value Range Doppler Value Range IVSd 2D 1.23 cm [ 0.60 - 1.00 ] AV Peak Raghav 1.17 m/s [ 1.00 - 1.70 ] LVIDd 2D 4.52 cm [ 4.20 - 5.80 ] AV Peak PG 5.5 mmHg LVIDs 2D 3.11 cm [ 2.50 - 4.00 ] AV Mean PG 3.1 mmHg LVPWd 2D 1.23 cm [ 0.60 - 1.00 ] AV VTI 19.5 cm EF Mod BP 57 % [ 52 - 72 ] OLENA V max 3.3 cm2 LA Dimen 2D 4.54 cm [ 3.00 - 4.00 ] OLENA VTI 3.3 cm2 AoR Diam 2D 3.55 cm [ 3.10 - 3.70 ] LVOT Peak Raghav 0.96 m/s [ 0.70 - 1.10 ] AoR Diam 2D Index 1.66 LVOT Diam 2.3 cm RA Volume 78.20 ml LVOT Peak PG 3.7 mmHg LA Volume Index 26.90 ml/m2 [ 16.00 - 34.00 ] LVOT VTI 12.2 cm TAPSE 1.31 cm [ 1.71 - 5.00 ] MV Peak PG 11.2 mmHg MV Mean PG 4.4 mmHg MV E Peak Raghav 1.5 m/s [ 0.6 - 1.3 ] MV A Peak Raghav 1.1 m/s [ 1.0 - 1.2 ] MV PHT 54.0 ms [ 20.0 - 100.0 ] MV Decel Time 183.0 ms [ 104.0 - 258.0 ] MVA PHT 4.1 ms MV E/A Ratio 1.4 RA Pressure 3.0 mmHg PV Peak Raghav 1.0 m/s [ 0.4 - 0.8 ] PV Peak PG 4.1 mmHg Lat E` Raghav 0.10 m/s [ 0.10 - 0.15 ] Sept E' Raghav 0.07 m/s [ 0.08 - 0.15 ] E/E` 15.00 RV S' 0.09 m/s 2D/MM Value Range Doppler Value Range - FINDINGS: BP: Blood pressure: 137/85 mmHg. Left Ventricle: Normal global and regional left ventricular systolic function. Ejection Fraction (Simpsons) is measured at 57 %. Normal left ventricular cavity size. Paradoxical septal motion consistent with prior pericardiotomy. Mild concentric left ventricular hypertrophy. Right Ventricle: Normal right ventricular systolic function. Normal right ventricular size. Left Atrium: There is mild enlargement of the left atrium. Right Atrium: The right atrium is normal in size. Atrial Septum: Normal appearing atrial septum. Mitral Valve: Mitral stenosis is absent. There is no mitral regurgitation. A mitral valve annuloplasty ring is present. Aortic Valve: Normal appearance of the aortic valve. Aortic valve appears tricuspid in configuration. There is no aortic stenosis. Trace aortic valve regurgitation. Tricuspid Valve: Normal appearance of the tricuspid leaflets. Trace tricuspid regurgitation. TR envelope inadequate to estimate RVSP. Pulmonic Valve: Normal appearance of the pulmonic valve. Trace pulmonic regurgitation. Pericardium: No significant pericardial effusion. Aortic Root and Aorta: Normal caliber aortic root. Normal sized ascending aorta. Aortic Arch: The aortic arch is poorly visualized. IVC: Normal appearance of the inferior vena cava. CONCLUSIONS: 1. Normal global and regional left ventricular systolic function. Ejection Fraction (Simpsons) is measured at 57 %. Normal left ventricular cavity size. Paradoxical septal motion consistent with prior pericardiotomy. Mild concentric left ventricular hypertrophy. 2. Normal right ventricular systolic function. Normal right ventricular size. 3. Mitral stenosis is absent. There is no mitral regurgitation. A mitral valve annuloplasty ring is present. Electronically Signed By: Hugo Lan [facility] Card 06/10/2024 11:11:58 AM CDT Procedure Note Hugo Lan MD - 06/10/2024 [facility] Cardiac Testing Center [address] [place] [id number] ECHOCARDIOGRAM Patient Name: CASSIE AMIN : 1960 (63y 9m) Gender: M Study Date: 06/10/2024 09:50:24 AM Ht(Inch): 71 Wt(Lb): 201.94 BSA: 2.14 Supervisor Alum Plant: BC Order Provider: HUGO LAN BMI: 28.16 BP: 137/85 Ref Provider: HUGO LAN - PROCEDURES: Echocardiographic Report: Transthoracic Echocardiogram with complete 2D,M-Mode, Spectral and Color Flow Doppler examination. INDICATIONS: I34.0 Nonrheumatic mitral (valve) insufficiency. MEASUREMENTS: 2D/MM Value Range DopplerValue Range IVSd 2D 1.23 cm [ 0.60 - 1.00 ] AV Peak Vel1.17 m/s [ 1.00 - 1.70 ] LVIDd 2D 4.52 cm [ 4.20 - 5.80 ] AV Peak PG5.5 mmHg LVIDs 2D 3.11 cm [ 2.50 - 4.00 ] AV Mean PG3.1 mmHg LVPWd 2D 1.23 cm [ 0.60 - 1.00 ] AV VTI19.5 cm EF Mod BP 57 % [ 52 - 72 ] OLENA V max3.3 cm2 LA Dimen 2D 4.54 cm [ 3.00 - 4.00 ] OLENA VTI3.3 cm2 AoR Diam 2D 3.55 cm [ 3.10 - 3.70 ] LVOT Peak Vel0.96 m/s [ 0.70 - 1.10 ] AoR Diam 2D Index 1.66 LVOT Diam2.3 cm RA Volume 78.20 ml LVOT Peak PG3.7 mmHg LA Volume Index 26.90 ml/m2 [ 16.00 - 34.00 ] LVOT VTI12.2 cm TAPSE 1.31 cm [ 1.71 - 5.00 ] MV Peak PG11.2 mmHg MV Mean PG 4.4 mmHg MV E Peak Raghav 1.5 m/s [ 0.6 - 1.3 ] MV A Peak Raghav 1.1 m/s [ 1.0 - 1.2 ] MV PHT 54.0 ms [ 20.0 - 100.0 ] MV Decel Time 183.0 ms [ 104.0 - 258.0 ] MVA PHT 4.1 ms MV E/A Ratio 1.4 RA Pressure 3.0 mmHg PV Peak Raghav 1.0 m/s [ 0.4 - 0.8 ] PV Peak PG 4.1 mmHg Lat E` Raghav 0.10 m/s [ 0.10 - 0.15 ] Sept E' Raghav 0.07 m/s [ 0.08 - 0.15 ] E/E` 15.00 RV S' 0.09 m/s 2D/MM Value Range DopplerValue Range - FINDINGS: BP: Blood pressure: 137/85 mmHg. Left Ventricle: Normal global and regional left ventricular systolicfunction. Ejection Fraction (Simpsons) is measured at 57 %. Normal left ventricular cavitysize. Paradoxical septal motion consistent with prior pericardiotomy. Mild concentric leftventricular hypertrophy. Right Ventricle: Normal right ventricular systolic function. Normal rightventricular size. Left Atrium: There is mild enlargement of the left atrium. Right Atrium: The right atrium is normal in size. Atrial Septum: Normal appearing atrial septum. Mitral Valve: Mitral stenosis is absent. There is no mitral regurgitation.A mitral valve annuloplasty ring is present. Aortic Valve: Normal appearance of the aortic valve. Aortic valve appearstricuspid in configuration. There is no aortic stenosis. Trace aortic valveregurgitation. Tricuspid Valve: Normal appearance of the tricuspid leaflets. Tracetricuspid regurgitation. TR envelope inadequate to estimate RVSP. Pulmonic Valve: Normal appearance of the pulmonic valve. Trace pulmonicregurgitation. Pericardium: No significant pericardial effusion. Aortic Root and Aorta: Normal caliber aortic root. Normal sized ascendingaorta. Aortic Arch: The aortic arch is poorly visualized. IVC: Normal appearance of the inferior vena cava. CONCLUSIONS: 1. Normal global and regional left ventricular systolic function. EjectionFraction (Simpsons) is measured at 57 %. Normal left ventricular cavity size.Paradoxical septal motion consistent with prior pericardiotomy. Mild concentric leftventricular hypertrophy. 2. Normal right ventricular systolic function. Normal right ventricularsize. 3. Mitral stenosis is absent. There is no mitral regurgitation. A mitralvalve annuloplasty ring is present. Electronically Signed By: Hugo Lan [facility] Card 06/10/2024 11:11:58 AM CDT us Hugo Lan MD CV ECHO PROCEDURES Final Result from Last 3 Months Insurance [facility] Care Teams Gis Developer Relationship Specialty Start Date End Date Shoaib Fortune MD PCP - General Family Practice 09/03/17
--- OUTSIDE RECORDS SUMMARY | 2024-08-26 09:37 | XMS_ITS | Clinical Summary ---
[facility] Address [address] [place] [address] Care Team Providers Care Pig Breeder Name Role Phone Shoaib Fortune MD Primary Care Provider Allergies No known active allergies Medications fenofibrate [...] CPAP Assessment & Plan (04/02/2020 10:51 AM ACTIVITIES ATTENDANT): It sounds as if he is doing quite well without CPAP, and perhaps weight loss cured his sleep apnea. However, given his echo finding of right ventricular enlargement and hypokinesis, I had recommended consultation with a sleep specialist and likely a sleep study to confirm that he is doing well without treatment. Mixed hyperlipidemia 09/02/2018 Assessment & Plan (04/02/2020 10:51 AM ACTIVITIES ATTENDANT): On chronic lipid lowering therapy with good [...] surveillance Assessment & Plan (04/02/2020 10:50 AM ACTIVITIES ATTENDANT): Status post mitral valve repair with no [...] sinus Assessment & Plan (04/02/2020 10:51 AM ACTIVITIES ATTENDANT): No symptomatic recurrence. He is in sinus [...] He remains on carvedilol, Lanoxin, and Xarelto. Encounters Date Type Department Care Team Description 06/10/2024 11:15 AM CDT Office Visit [facility] Medical Group Cardiology [address] [place] [address] Hugo Lan MD Chronic systolic heart failure (HCC) (Primary Dx); Paroxysmal A-fib (HCC); Non-rheumatic mitral regurgitation; Primary hypertension 06/10/2024 9:47 AM CDT - 06/10/2024 11:59 PM CDT Hospital Encounter [facility] OP Cardiac Testing [address] [place] [address] Non-rheumatic mitral regurgitation Discharge Disposition: Discharge to home or self care from Last 3 Months Surgical History Surgery Date Site/Laterality Comments MITRAL VALVE REPAIR 2008 mitral valve repair Medical History Medical History Date Comments Hx Other Medical 2012 Sleep Apnea, CP AP Heart disease Diabetes mellitus (HCC) Family History Medical History Relation Name Comments Alcohol abuse Father Father Coronary artery disease Father Father Salvador nary Artery Disease; Diabetes Father Father Early Father Father Heart attack Father Father Heart disease Father Father Hypertension Father Father Relation Name Status Comments Father Father Alive Social History Tobacco Use Types Packs/Day Years [...] of Binge Drinking Not on file 04/06 [facility] [place] [facility] Occupat ional Health - Occupational Stress [...] on file Legal Sex Male 8:04 AM ACTIVITIES ATTENDANT Gender Identity Male 03/31/2020 5:08 PM ACTIVITIES ATTENDANT Sexual Orientation Lepe 03/31/2020 5: 08 PM ACTIVITIES ATTENDANT Obstetrics History Last Filed Vital Signs Vital Sign Reading [...] 06/10/2024 10:57 AM CDT Plan of Treatment Health Maintenance Due Date Last Done Comments Colon Cancer Screening-Colonoscopy 1960 Depression Screening 1960 Hepatitis C Screening 1960 Prostate Cancer Screening-PSA 1960 Hepatitis B Screening 09/06/1977 Regular Well Visit/Exam 18-64 09/06/1977 Pneumococcal vaccine <65 (1 of 2 - PCV) 09/06/1978 DTaP/Tdap/Td Vaccine (1 - Tdap) 12/07/2000 12/06/2000, 06/26/1990, 11/05/1980 Influenza Vaccine (#1) 2024 3, 12/06/2000, 02/09/2000, Additional history exists Zoster Vaccine Completed 02/22/2020, 12/19/2019 Procedures Procedure Name Priority Date/Time Associated Diagnosis Comments TRANSTHORACIC ECHO (TTE) COMPLETE W DOPPLER/CF WO CONTRAST Routine 06/10/2024 10:28 AM CDT Non-rheumatic mitral regurgitation from Last 3 Months Results * TRANSTHORACIC ECHO (TTE) COMPLETE W DOPPLER/CF WO CONTRAST (06/10/2024 10:28 AM CDT) EF Mod BP 57 % CONS SCIMAGE Anatomical Region Laterality Modality Ultrasound 06/10/2024 9:50 AM CDT Narrative 06/10/2024 11:12 AM CDT [facility] Cardiac Testing Center [address] [place] [id number] ECHOCARDIOGRAM Patient Name: CASSIE AMIN : 1960 (63y 9m) Gender: M Study Date: 06/10/2024 09:50:24 AM Ht(Inch): 71 Wt(Lb): 201.94 BSA: 2.14 Centrifugal Screen Tender: CATHERINE Order Provider: HUGO LAN BMI: 28.16 [...] is present. Electronically Signed By: Hugo Lan [facility] Card 06/10/2024 11:11:58 AM CDT Procedure Note Hugo Lan MD - 06/10/2024 [facility] Cardiac Testing Center [address] [place] [id number] ECHOCARDIOGRAM Patient Name: CASSIE AMIN : 1960 (63y 9m) Gender: M Study Date: 06/10/2024 09:50:24 AM Ht(Inch): 71 Wt(Lb): 201.94 BSA: 2.14 Centrifugal Screen Tender: CATHERINE Order Provider: HUGO LAN BMI: 28.16 [...] is present. Electronically Signed By: Hugo Lan [facility] Card 06/10/2024 11:11:58 AM CDT us Hugo Lan MD CV ECHO PROCEDURES Final Result from Last [address] [facility] Care Teams Pig Breeder Relationship Specialty Start Date End Date Shoaib Fortune MD PCP - General Family Practice 09/03/17
[2024-08-26 19:25] LABS: Alanine Aminotransferase 25 U/L (6-50); Albumin Level 4.6 g/dL (3.5-5.1); Alkaline Phosphatase 51 U/L (38-126); Anion Gap 10 mmol/L (4-12); Aspartate Amino Transferase 63 U/L (17-59); Bilirubin,Total 0.6 mg/dL (0.2-1.3); Blood Urea Nitrogen 18 mg/dL (9-20); Calcium 9.6 mg/dL (8.4-10.2); Carbon Dioxide 22 mmol/L (22-30); Chloride 104 mmol/L (98-107); Estimated Glomerular Filt Rate > 60; Glucose 157 mg/dL (65-110); Potassium 4.5 mmol/L (3.4-5.0); Sodium 136 mmol/L (137-145); Total Protein 7.3 g/dL (6.3-8.2)
== END 2024-08-26 09:34 | disposition home or self-care (01) ==
LOC: ANHGOSHLAB 09:34
PROVIDERS: PCP Family Medicine; Visit Provider Family Medicine
DX: Z79.899 Other long term (current) drug therapy (principal); I10 Essential (primary) hypertension
CPT/HCPCS: 36415; 80053